=== PATIENT | female | born 1990 | race African-American/Black ===

== ENCOUNTER 2025-05-24 14:14 | Inpatient (IN) | payer BC, SELFPAY ==
[2025-05-24] VITALS (67 sets, daily range): BP systolic 83–159; BP diastolic 45–116; PULSE 81–120; TEMP 36.7–37.2; O2SAT 85–100; BMI 28.0
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
[2025-05-24] MEDS: OXYTOCIN 30 UNITS/NS 500 ML 30 UNITS/500 ML BAG IV CONT (16:13)
[2025-05-24] MEDS: LACTATED RINGERS 1,000 ML 125 ML IV CONT ×2 (16:14→21:34)
--- OUTSIDE RECORDS SUMMARY | 2025-05-24 16:17 | XMS_ITS | Clinical Summary ---
Author Organization [facility] Address [address] [place] [address] Care Team Providers Care Technical Artist Name Role Phone Melina Chacon MD Primary Care Provider Source Comments [facility],non-owned Affiliates and Associated Physician Practices is amultiple site organization consisting of ambulatory clinics and hospital sitesin [place], [place], [place] and [place]. This disclosure is being madepursuant to the Care Everywhere program and may not contain all information available regarding this patient. Last updated 18.[facility] Active Problems Problem Noted Date Diagnosed Date Encounter for anatomic survey 07/08/2018 2, currently 05/18/2018 Social History Tobacco Use Types Packs/Day Years Used Date Smoking Tobacco: Never Assessed Comments No Sex and Gender Information Value Date Recorded Sex Assigned at Not on file Legal Sex Female 2:25 PM CDT Gender Identity Not on file Sexual Orientation Not on file Plan of Treatment Health Maintenance Due Date Last Done Comments HIV SCREENING 02/22/2003 HEPATITIS C SCREENING 02/18/2006 DTAP/TDAP/TD VACCINES (1 - Tdap) 02/22/2007 HEPATITIS B VACCINE (1 of 3 - 19+ 3-dose series) 02/22/2007 PAP SMEAR 02/22/2009 HPV VACCINE (1 - 3-dose SCDM series) 02/22/2015 DEPRESSION SCREENING 09/08/2024 COVID-19 VACCINE (1 - 2023-2 5 season) 2025 INFLUENZA VACCINE (#1) 2025 ZOSTER VACCINE (1 of 2) 02/22/2038 HIB VACCINE Aged Out No longer eligi ble based on patient's age to complete this topic MENINGOCOCCAL (Group B) VACC INE SHARED DECISION-MAKING Aged Out No longer eligibl e based on patient's age to complete this topic MENINGOCOCCAL GROUPS A/C/Y/W VACCINE Aged Out No longer eligible b ased on patient's age to complete this topic PNEUMOCOCCAL VACCINE Aged Out No long er eligible based on patient's age to complete this topic Insurance [facility] MEDICAID - [place] MED[place] LIMITED [place]EFIT - [place] Care Teams Technical Artist Relationship Specialty Start Date End Date Melina Chacon MD PCP - General Internal Medicine 05/20/18
--- OUTSIDE RECORDS SUMMARY | 2025-05-24 16:17 | XMS_ITS | Clinical Summary ---
Author Organization [facility] Address [address] [place] [address] Phone Care Team Providers Care Animal Taxonomist Name Role Phone Sandi Box MD Primary Care Provider [phone] Jeffrey Maki MD Unavailable [phone] Allergies Active Allergy Reactions Criticality Noted Date Comments Naproxen Hives 05/20/2022 Medications Vit-Fe Fumarate-FA ( VITAMIN PO) Take by mouth. Active Active Problems Problem Noted Date Diagnosed Date Elevated antinuclear antibody (CED) level 2023 Other neutropenia 02/12/2024 Estimated Date of Delivery Comme nts Yes 05/26/2025 Encounters Date Type Department Care Team Description 02/25/2025 12:20 PM CDT Lab [facility] [address] [address] Lab, [facility] [place] Other neutropenia (HCC); Elevated antinuclear antibody (CED) level 02/25/2025 11:45 AM CDT Office Visit [facility] [address] [address] Shefali Toussaint, POWER WOOD SAWYER, PROPERTY ADMINISTRATOR Other neutropenia (HCC) (Primary Dx); Elevated antinuclear antibody (CED) level 02/25/2025 Results Follow-Up [facility] [address] [address] Shefali Toussaint, POWER WOOD SAWYER, PROPERTY ADMINISTRATOR CBC WITH AUTO DIFF [place] 02/25/2025 Travel from Last 3 Months Family History Relation Name Status Comments Father Alive Mother Alive Social History Tobacco Use Types Packs/Day Years Used Date Smoking Tobacco: Never Smokeless Tobacco: Never Tobacco Cessation:Counseling Given: Not Answered Estimated Date of Delivery Comme nts Yes 05/26/2025 Sex and Gender Information Value Date Recorded Sex Assigned at Not on file Legal Sex Female 12:42 PM SENIOR PRODUCT MARKETING MANAGER Gender Identity Not on file Sexual Orientation Not on file Last Filed Vital Signs Vital Sign Reading Time Taken Comments Blood Pressure 110/64 02/25/2025 11:55 AM CDT Pulse 102 02/25/2025 11:55 AM CDT Temperature 36.8 C (98.2 F) 02/25/2025 11:55 AM CDT Respiratory Rate 20 02/25/2025 11:5 5 AM CDT Oxygen Saturation 99% 02/25/2025 11: 55 AM CDT Inhaled Oxygen Concentration - - Weight 78.9 kg (173 lb 14.4 oz) 025 11:55 AM CDT Height 179.1 cm (5' 10.5) 02/25/2025 1 1:55 AM CDT Body Mass Index 24.6 02/25/2025 11:55 AM CDT Plan of Treatment Upcoming Encounters Date Type Department Care Team (Late st Contact Info) Description 08/26/2025 8:00 AM SENIOR PRODUCT MARKETING MANAGER Office Visit [facility] [address] [address] Jeffrey Maki MD [address] [facility] [address] [facility] [address] [place] [address] Health Maintenance Due Date Last Done Comments SARS-COV-2 Immunization (#1) 02/22/1993 Hepatitis B Immunization (1 of 3 - 19+ 3-dose series) 02/22/2007 Pneumococcal Immunization Combined (1 of 2 - PCV) 02/22/2007 HPV/Cotest 02/22/2018 Cervical Cancer Screening (CCS) 12/26/2020 Pap Smear 12/26/2020 12/26/2017 Hepatitis C Virus (HCV) Screening 02/11/2025 02/12/2024, 05/20/2022 Influenza Immunization (#1) 2025 Human Papillomavirus (HPV) Immunization Completed 01/18/2008, 07/20/2007, 04/23/2007 TdaP Immunization Completed 09/14/2018 Meningococcal Immunization (ACWY) Aged Out No longer eligible b ased on patient's age to complete this topic Respiratory Syncytial Virus (RSV) Immunization (Adult) (No Doses Required) Completed Rotavirus Immunization Aged Out No lo nger eligible based on patient's age to complete this topic Procedures Procedure Name Priority Date/Time Associated Diagnosis Comments CBC WITH AUTO DIFF [place] Routine 02/25/2025 12:32 PM CDT HEPATITIS C ANTIBODY Routine 02/12/2024 8:59 AM CDT Other neutropenia (HCC) from Last 3 Months or Most Recently Relevant to Health Maintenance Results * (ABNORMAL) CBC WITH AUTO DIFF [place] (02/25/2025 12:32 PM CDT) WBC 7.1 4.0 - 10.0 10*3/uL [facility] HGB 9.4(L) 11.2 - 15.7 g/dL [facility] HCT 30.4(L) 34.1 - 44.9 % [facility] PLT 291 163 - 369 10*3/uL [facility] MPV 8.8(L) 9.4 - 12.4 fL [facility] RBC 3.44(L) 3.93 - 5.22 10*6/uL [facility] MCV 88 79 - 95 fL [facility] MCH 27.3 25.6 - 32.2 pg [facility] MCHC 30.9(L) 32.2 - 36.5 g/dL [facility] RDW 12.3 11.6 - 14.4 % [facility] Neutrophils % 64.8 36.0 - 66.0 % [facility] Lymphocytes % 21.2 19.0 - 40.0 % [facility] Monocytes % 9.7 4.1 - 12.1 % [facility] Eosinophils % 2.2 0.0 - 3.5 % [facility] Basophils % 0.1 0.0 - 1.0 % [facility] Absolute Neutrophils 4.6 1.4 - 6.6 10*3/uL [facility] Absolute Lymphocytes 1.5 0.8 - 4.0 10*3/uL [facility] Absolute Monocytes 0.7 0.2 - 1.2 10*3/uL [facility] Absolute Eosinophils 0.2 0.0 - 0.4 10*3/uL [facility] Absolute Basophils 0.0 0.0 - 0.1 10*3/uL [facility] 02/25/2025 12:3 2 PM CDT Shefali Toussaint APRN, PROPERTY ADMINISTRATOR LAB SEND OUTS F inal Result Performing Organization Address [facility] Co de Phone Number [facility] Hiro Bains [address] [phone] * HEPATITIS C ANTIBODY (02/12/2024 8:59 AM CDT) HEPATITIS C VIRUS AB SIGNAL CUTOFF NON REACTIVE NON REACTIVE [facility] HEPATITIS C VIRUS AB COMMENT [facility] Comment: NOT INFECTED WITH HCV UNLESS EARLY OR ACUTE INFECTION IS SUSPECTED (WHICH MAY BE DELAYED IN AN IMMUNOCOMPROMISED INDIVIDUAL), OR OTHER EVIDENCE EXISTS TO INDICATE HCV INFECTION. Blood 02/12/2024 8:59 AM CDT Narrative [facility] - 02/13/2024 9:09 AM CDT TESTING PERFORMED AT: [] [facility], [address] [place] [address], [place], [address], PHONE: [phone], TERMITE EXTERMINATOR: JAYA HORNE, PHD Release to patient->Immediate Jeffrey Maki MD CHEMISTRY ORDERABLES Final R esult Performing Organization Address [facility] Co de Phone Number [facility] Cancer [facility] [place] [address], [place] [phone] from Last 3 Months or Most Recently Relevant to Health Maintenance Insurance [facility] Care Teams Animal Taxonomist Relationship Specialty Start Date End Date Sandi Box MD [address] [place] [address] PCP - General Family Medicine 09/15/23 Jeffrey Maki MD [address] [place] [phone] Consulting Physician Oncology 09/15/23
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
--- OUTSIDE RECORDS SUMMARY | 2025-05-24 16:17 | XMS_ITS | Clinical Summary ---
Author Organization [facility] Address [address] [place] [address] Phone Care Team Providers Care Stone Mill Operator Name Role Phone Unavailable Primary Care Provider Unavailabl e Encounters Date Type Department Care Team Description 04/12/2025 External Device Data STL ABSTRACTION Provider, Abstract 03/23/2025 External Device Data ST[facility] ABSTRACTION Provider, Abstract 03/23/2025 External Device Data ST[facility] ABSTRACTION Provider, Abstract 03/01/2025 External Device Data STL ABSTRACTION Provider, Abstract 2025 External Device Data STL ABSTRACTION Provider, Abstract from Last 3 Months Social History Tobacco Use Types Packs/Day Years Used Date Smoking Tobacco: Never Assessed Comments Unknown Sex and Gender Information Value Date Recorded Sex Assigned at Not on file Legal Sex Female 9:46 AM CDT Gender Identity Not on file Sexual Orientation Not on file Plan of Treatment Health Maintenance Due Date Last Done Comments DTAP/TDAP/TD VACCINES (1 - Tdap) 02/22/2007 HEPATITIS B VACCINES (1 of 3 - 19+ 3-dose series) 02/06 HPV/Cotest (21-29) 02/22/2009 HPV VACCINES (1 - 3-dose SCDM series) 02/22/2015 CERVICAL CANCER SCREENING 02/22/2018 HPV/Cotest (30-65) 02/22/2018 PAP SMEAR 02/22/2018 INFLUENZA VACCINE (#1) 2025 Insurance [employer]BS BLUE ACCESS/TRUE BLUE PPO
--- NOTE | 2025-05-24 16:18 | LDADM ---
This patient, Mini Abbott, was admitted to Labor/Delivery/Recovery 103 on 05/24/25 at 14:14. Plans for labor, pain management and were discussed with patient. Patient/family oriented to hospital policies and general routines including ID bracelet, bed and alarms, visiting hours, pain management, procedures, bathroom and other care routines, personal items, smoking policy, room service/diet and guest tray routines, security routines, and visiting hours. Patient/Family are encouraged to report perceived risks to care and to ask questions if they do not understand what they are told or what they should do. See OBIX for further documentation.
[2025-05-24 16:23] LABS: Hematocrit 30.1 % (37.0-47.0); Hemoglobin 8.7 g/dL (12.0-15.0); Immature Granulocyte Percent A 1.2 % (0-0.5); Lymphocytes Absolute Auto 1.28 K/mm3 (0.9-3.2); Mean Corpuscular HGB Conc 28.9 g/dl (32-36); Mean Corpuscular Hemoglobin 22.3 pg (26-34); Mean Corpuscular Volume 77.2 fl (80-100); Nucleated Red Blood Cells Absolute Auto 0.000 K/mm3 (0.0-0.012); Nucleated Red Blood Cells Perc 0.0 % (0.0-0.2); Platelet Count Result 333 k/mm3 (150-375); Red Blood Count 3.90 M/mm3 (4.2-5.4); White Blood Count 9.6 K/mm3 (4.5-10.0)
[2025-05-24 16:47] LABS: Anisocytosis 1+; Hypochromasia 1+; Ovalocytes 1+; Schistocytes None Seen
[2025-05-24 17:07] LABS: Syphilis IgG/IgM Antibody Non-Reactive (Nonreactive)
--- NOTE | 2025-05-24 21:41 | WPDANESEPP ---
Anes - Eval Pre Procedure Procedure: labor pain management Date/Time: 05/24/25 21:41 Surgeon: Rajiv Preop Diagnosis: pain during labor Pre Op Diagnosis: Labor Patient Data Age: 35 Gender: F Height: 1.78 m Weight: 88.5 kg Last Vital Signs Temp 98.1 F 05/24/25 20:00 Pulse 93 05/24/25 21:30 BP 143/81 H 05/24/25 21:30 O2 Del Method Room Air 05/24/25 16:17 Allergies Allergy/AdvReac Type Severity Reaction Status Date / Time naproxen (From Aleve) Allergy Mild Hives Verified 05/19/25 09:14 Home Medications ?Medication ?Instructions ?Recorded ?Confirmed ?Type vits no.126-ferrous fum tablet PO 10/19/24 05/19/25 History 28 mg iron-folic acid 800 mcg tablet (Classic ) Laboratory Tests 05/24/25 16:11 WBC 9.6 K/mm3 (4.5-10.0) RBC 3.90 L M/mm3 (4.2-5.4) Hgb 8.7 L g/dL (12.0-15.0) Hct 30.1 L % (37.0-47.0) MCV 77.2 L fl (80-100) MCH 22.3 L pg (26-34) MCHC 28.9 L g/dl (32-36) RDW 16.7 H % (11.5-14.5) Plt Count 333 k/mm3 (150-375) MPV 9.1 fl (7.4-10.4) Immature Gran % (Auto) 1.2 H % (0-0.5) Neut % (Auto) 75.3 H % (45.5-73.1) Lymph % (Auto) 13.3 L % (18.3-44.2) [place] % (Auto) 9.5 H % (2.6-8.5) Eos % (Auto) 0.5 % (0-4.4) Baso % (Auto) 0.2 % (0.2-1.2) Lymph # (Auto) 1.28 K/mm3 (0.9-3.2) [place] # (Auto) 0.9 H K/mm3 (0.1-0.6) Eos # (Auto) 0.1 K/mm3 (0-0.3) Baso # (Auto) 0.0 K/mm3 (0.0-0.1) Abs Immat Gran (auto) 0.12 H K/mm3 (0.00-0.031) Absolute Neuts (auto) 7.2 H K/mm3 (1.3-6.7) Absolute Nucleated RBC 0.000 K/mm3 (0.0-0.012) Band Neutrophils % Not Reportable Nucleated RBC % 0.0 % (0.0-0.2) Platelet Estimate Adequate (Adequate) Hypochromasia 1+ Anisocytosis 1+ Ovalocytes 1+ Schistocytes None seen Syphilis IgG/IgM Ab Non-reactive (Nonreactive) Blood Type B Positive Antibody Screen Negative Patient hx anesthesia problems: none Family hx anesthesia problems: none Results Review: All pre-operative results and documents have been reviewed as part of the pre-operative evaluation. [facility] Past Medical History Medical History Allergies Family History Family History Father Hypertension Grandparent Diabetes mellitus Social History Social History Smoking status: Never smoker Alcohol intake: current Substance use: never Substance use type: does not use Do You Feel Safe in your Home?: Yes Lack of Transportation: No Lack of Food: Never True Current Housing: I Have Housing Concerned About Future Housing: No Difficulty Paying Gas/Electric Bills: No Difficulty Paying for Meds: No Currently Unemployed: No Education: Master's Degree or Higher Difficulty w/ Childcare or Family Care: No Living arrangements: with family Occupation/Education: occupation Gender identity (if verbalized by the patient): Female Sexual Orientation (if Verbalized by the Patient): Straight or Heterosexual Spiritual care concerns: No Exam Day of Procedure 05/24/25 21:41
--- NOTE | 2025-05-24 23:28 | P.PCNOB_ITS ---
OB - Vaginal Delivery Note Procedure Delivery date: 05/24/25 Induction method: None Delivery augmentation: Pitocin Delivery monitor: External FHT and External Uterine Route of delivery: Episiotomy description: None Laceration Description: Superficial Delivery repair: vicryl Specimen: No Quantitative Blood Loss (ml): 200 Anesthesia type: Epidural Disposition: Floor Complications: No immediate complications Narrative: Patient pushed for a spontaneous vaginal delivery. The fetus was delivered atraumatically and placed on the maternal abdomen. The cord was clamped and cut after 1 minute of life. The cord was double clamped and cut and a segment of cord was collected for cord gases. Cord blood was collected for blood type and Coomb's testing. The placenta delivered spontaneously and was noted to be intact. The perineum was inspected and a superficial vaginal laceration was noted. The laceration was repaired with 3-0 vicryl in a running fashion. The fundus was noted to be firm and good hemostasis was noted. The mom and infant were stable in the delivery room. [place] Baby Date of : 05/24/25 Time of : 23:19 Gestational Age by Date: 39 Infant gender: Female presentation: vertex position: Right Occiput Anterior Placenta delivery description: Spontaneous Cord Vessel Description: 3 Vessels and True Knot score one minute: 9 score five minutes: 9
[2025-05-24] MEDS: OXYTOCIN 30 UNITS/NS 500 ML 30 UNITS/500 ML BAG 125 UNITS IV CONT (23:53)
[2025-05-25] VITALS (9 sets, daily range): BP systolic 115–131; BP diastolic 67–77; PULSE 71–103; RESP 16–20; TEMP 36.7–37.1; O2SAT 95–100
[2025-05-25 05:37] LABS: Hematocrit 29.3 % (37.0-47.0); Hemoglobin 8.5 g/dL (12.0-15.0)
--- NOTE | 2025-05-25 07:44 | P.PNOB_ITS ---
OB - PN: Subj Subjective Date/time seen: 05/25/25 07:44 Patient comments: no complaints, pain well controlled and tolerating diet [place] feeding status: exclusively breast feeding Narrative: patient doing well this AM. No complaints. Pain is well controlled. She reports minimal bleeding. She is ambulating and voiding without difficulty. She is tolerating PO. She denies N/V, fever, chills. OB - PN: Obj Data Labs 05/25/25 04:51 Labs: Laboratory Results - last 24 hr 05/24/25 05/25/25 16:11 04:51 WBC 9.6 RBC 3.90 L Hgb 8.7 L 8.5 L Hct 30.1 L 29.3 L MCV 77.2 L MCH 22.3 L MCHC 28.9 L RDW 16.7 H Plt Count 333 MPV 9.1 Immature Gran % (Auto) 1.2 H Neut % (Auto) 75.3 H Lymph % (Auto) 13.3 L [place] % (Auto) 9.5 H Eos % (Auto) 0.5 Baso % (Auto) 0.2 Lymph # (Auto) 1.28 [place] # (Auto) 0.9 H Eos # (Auto) 0.1 Baso # (Auto) 0.0 Abs Immat Gran (auto) 0.12 H Absolute Neuts (auto) 7.2 H Absolute Nucleated RBC 0.000 Band Neutrophils % Not Reportable Nucleated RBC % 0.0 Platelet Estimate Adequate Hypochromasia 1+ Anisocytosis 1+ Ovalocytes 1+ Schistocytes None seen Syphilis IgG/IgM Ab Non-reactive Blood Type B Positive Antibody Screen Negative OB - PN A/P Plan day: 1 Plan: routine care Comments: patient doing well H/H .02/03, asymptomatic continue routine care Time Spent With Patient Time: Total time spent is greater than 50% in coordination of care (as documented) at patient's floor/unit and/or counseling patient: Time with patient: less than 15 minutes Review of Systems 2 Review of Systems: All systems reviewed & are unremarkable except as noted in HPI and below Exam 2 Const: General: comfortable and no acute distress Resp: Effort & Inspection: normal respiratory effort Cardio: Rate: regular rate GI: GI Palp: Yes Soft to palpation and No Tenderness to palpation present (GI) Auscultation: normal bowel sounds Other: fundus firm and below umbilicus. Psych: Affect: normal affect
[2025-05-25] MEDS: MULTIVIT/MIN/PREN/FOL AC/IRON TABLET 1 TAB PO (09:09)
[2025-05-25] MEDS: DOCUSATE SODIUM 100 MG CAPSULE PO ×2 (09:09→16:30)
[2025-05-25] MEDS: IBUPROFEN 600 MG TABLET PO ×3 (09:10→23:30)
--- NOTE | 2025-05-25 09:40 | PC.NURSE ---
Introductions were made, communication board updated. Discussed with patient her experience so far. Patient states that she has been able to get her infant to latch without pain. However, she expresses concerns about breaking the latch frequently and having to relatch her throughout feeding. Patient encouraged to call RN at next feeding to assess latch. Patient states understanding and will call this RN at next feeding. Additionally, patient is also giving formula supplementation at times. Primary RN updated.
--- NOTE | 2025-05-25 12:08 | PC.NURSE ---
Called to patient room to assist with latching . Upon entering room, was swaddled and sound asleep in the bassinet. This RN unswaddled infant and attempted to wake to breastfeed. Infant was not interested in feeding at this time. Instructed mother to place skin to skin and attempt to wake/feed in ~30 mintues.
[2025-05-25] MEDS: ACETAMINOPHEN 325 MG TABLET 650 MG PO ×2 (13:13→23:30)
--- NOTE | 2025-05-25 14:03 | WPDANLDPN2 ---
Anes-Prog Note L&D Date/Time: 05/25/25 14:03 Comfortable throughout: labor and delivery Neuraxial method: epidural Epidural/Spinal procedure site: clean & non-tender Neuro status: Neuro function grossly intact. Cardiovascular status: normal Respiratory status: normal Airway patency: baseline Mental status: baseline Post-Op hydration status: normal Vital Signs: Last Vital Signs Temp 36.8 C 05/25/25 07:35 Pulse 71 05/25/25 07:35 Resp 16 05/25/25 07:35 BP 119/77 05/25/25 07:35 Pulse Ox 100 05/25/25 07:35 O2 Del Method Room Air 05/24/25 16:17 Pain score (VAS): 1 (lower back pain) I/O: Intake & Output 05/24/25 05/25/25 05/25/25 23:59 07:59 15:59 Intake Total 1000 Output Total 200 50 Balance 800 -50 Patient feedback: Patient satisfied with anesthetic care.
[2025-05-26 07:35] VITALS: BP 117/74; PULSE 78; RESP 16; TEMP 36.8; O2SAT 97
--- NOTE | 2025-05-26 08:00 | P.DS_ITS ---
DS: Admitting Diagnosis Discharge Date 05/26/25 Admitting Diagnosis intrauterine at term DS: Discharge Diagnosis Discharge Diagnosis (1) Normal vaginal delivery: Code(s): O80 - Encounter for full-term uncomplicated delivery Status: Acute OB - DS: Summary OB Procedures : None OB Procedures Intrapartum: Spontaneous Vag Delivery OB Procedures: : None Peripartum Data Laceration Description: Superficial Episiotomy description: None Status at Discharge Functional status at discharge: independent ambulation Overall status at discharge: patient is back to baseline Time Spent with Patient Time attestation: Total time spent providing and/or coordinating discharge services: Time spent: Less than 30 minutes Exam Const: General: comfortable and no acute distress Resp: Effort & Inspection: normal respiratory effort Auscultation: clear to auscultation bilaterally Cardio: Rate: regular rate GI: GI Palp: Yes Soft to palpation Auscultation: normal bowel sounds Other: Fundus firm below umbilicus Psych: Appearance: grossly normal Mental Status: mental status grossly normal Affect: normal affect Discharge Plan Discharge Discharging Clinician: Jerzy Vance Patient Disposition: Home Activity: as tolerated and pelvic rest Diet: regular Patient Instructions: Antibiotic Form, Vaginal Delivery (DC) Patient Language: Ch[place] Stand Alone Forms: General Discharge Information Follow-up/Referrals: Jerzy Vance MD [Physician, NETWORK CONTROL TECHNICIAN] - 4 Weeks Discharge Medications: New acetaminophen 500 mg tablet 500 mg PO Q6H PRN (Reason: pain) Qty: 30 0RF ibuprofen 600 mg tablet 600 mg PO Q6H PRN (Reason: pain) Qty: 30 0RF Continued Classic 28 mg iron- 800 mcg tablet PO Date of admission: 05/24/25 14:14 Primary Care Provider: UNKNOWN,DOCTOR Admitting Provider: Jerzy Vance Attending physician on admission: Jerzy Vance Condition: Stable
[2025-05-26] MEDS: MULTIVIT/MIN/PREN/FOL AC/IRON TABLET 1 TAB PO (08:53)
[2025-05-26] MEDS: IBUPROFEN 600 MG TABLET PO (08:54)
[2025-05-26] MEDS: DOCUSATE SODIUM 100 MG CAPSULE PO (08:54)
[2025-05-26] MEDS: ACETAMINOPHEN 325 MG TABLET 650 MG PO (08:54)
--- NOTE | 2025-05-26 09:22 | PC.NURSE ---
Patient viewed the discharge video Mother & Baby Care, The First Two Weeks. Patient was given the opportunity and encouraged to ask questions. Patient verbalized understanding of information shared and has been given the mother/baby guide for home reference.
[2025-05-27 11:21] VITALS: BP 133/77; PULSE 79; RESP 18; TEMP 36.8; O2SAT 100
== END 2025-05-26 10:44 | disposition home or self-care (01) | DRG 807 ==
LOC: ANHLDR 14:48 → ANHOB2 05-25 01:57
PROVIDERS: Admitting Provider Student in an Organized Health Care Education/Training Program; Visit Provider Student in an Organized Health Care Education/Training Program
DX: O62.3 Precipitate labor (principal); Z37.0 Single live birth; Z3A.39 39 weeks gestation of pregnancy; O69.2XX0 Labor and delivery complicated by other cord entanglement, with compression, not applicable or unspecified; O70.0 First degree perineal laceration during delivery
CPT/HCPCS: 36415; 85014; 85018; 85025; 86593; 86850; 86900; 86901; A9270; J2590; J2795; J7120